=== PATIENT | male | born 1945 | race Asian ===

== ENCOUNTER 2017-10-04 22:38 | Emergency (ER) | payer MEDICARE ==
[~2017-10-04] VITALS: Ht 172.7 cm; Wt 99.8 kg
[2017-10-04 22:39] VITALS: Ht 172.7 cm; Wt 99.8 kg
[2017-10-05 03:10] VITALS: BP 000/00
== END 2017-10-04 23:00 | disposition expired ==
LOC: ED 22:38
DX: I46.9 Cardiac arrest, cause unspecified (principal); I10 Essential (primary) hypertension
CPT/HCPCS: 82962; J0171; J3490; J7030; J7050